=== PATIENT | female | born 1955 | race Caucasian/White ===

== ENCOUNTER → 2020-04-26 13:25 | Outpatient (CLI) | payer MEDICARE, OTHER, SELFPAY ==
[2020-04-27 17:24] LABS: COVID19 Sendout Not Detected (Not Detect)
== END ==
PROVIDERS: PCP Family Medicine; Visit Provider Physician Assistant
DX: Z11.59 Encounter for screening for other viral diseases (principal)
CPT/HCPCS: 87635

== ENCOUNTER 2020-04-29 09:49 | Day surgery (SDC) | payer MEDICARE, OTHER, SELFPAY ==
[2020-04-29 10:14] VITALS: BP 136/76; PULSE 80; RESP 14; TEMP 36.2; O2SAT 97
[2020-04-29 10:16] VITALS: BMI 26.7
[2020-04-29] MEDS: LACTATED RINGERS 1,000 ML 200 ML IV (10:24)
--- NOTE | 2020-04-29 10:24 | P.HP_ITS ---
History of Present Illness History of Present Illness Date Patient Seen: 04/29/20 Time Patient Seen: 10:24 Chief complaint: SDC Narrative: The patient is a woman who is last colonoscopy was 10 years ago. We have tried to contact her in the past to repeat her exam that she has always been out of town because of the work she does. She is here now for colonoscopy. No family history of colon cancer. Patient History Medical History (Updated 04/29/20 @ 10:25 by Jose Lucas MD) Asthma (Acute) Lichen sclerosus of female genitalia (Chronic) Family & Social History Social History: household members none Tobacco & Substance use: Smoking Status Former smoker alcohol intake former Substance Use Type does not use Meds Home Medications and Allergies Home Medications Medication Instructions Recorded Confirmed Type albuterol sulfate 90 mcg/actuation 2 puff INHALATION Q6H PRN #6.7 gram 02/21/19 04/25/19 Rx aerosol inhaler beclomethasone dipropionate 80 2 puff INHALATION BID #10.6 gram 02/21/19 04/25/19 Rx mcg/actuation HFA breath activated aerosol citalopram 20 mg tablet 20 mg PO QDAY #90 tab 02/21/19 04/25/19 Rx sulfamethoxazole 800 1 tab PO BID #14 tab 06/18/19 Rx mg-trimethoprim 160 mg tablet Allergies Allergy/AdvReac Type Severity Reaction Status Date / Time No Known Drug Allergies Allergy Verified 04/29/20 10:14 Review of Systems Review of Systems ROS: Yes All systems reviewed with the patient and are negative except as o therwise documented Exam Vital Signs (past 8 hours): - 04/29/20 10:14 Temperature 97.1 F L Pulse Rate 80 Respiratory Rate 14 Blood Pressure 136/76 Pulse Oximetry 97 Oxygen Delivery Method Room Air Narrative Exam Narrative: Pleasant cooperative patient no apparent distress. Lungs are clear to auscultation. No rales or rhonchi. Heart regular rate and rhythm no murmur gallop. Abdomen is soft nontender without mass. No obvious hernias. Patient is alert and oriented x3. Assessment & Plan Assessment & Plan narrative: The patient for a screening colonoscopy. I have discussed the procedure with them. Risks of bleeding, perforation which would necessitate major operation, failure to find remove all lesions, the potential tattoo were all discussed. All questions were answered. They wished to proceed.
--- NOTE | 2020-04-29 10:30 | PM.PREOP ---
Pre-operative Note COVID-19 COVID-19 status: Negative Result date/Date tested (Pos, Neg/Pending): 04/26/20 Interval Note History & Physical reviewed/Exam performed by Physician: Yes Changes to H&P: No ASA Class (for procedural sedation): I
[2020-04-29] MEDS: MIDAZOLAM 5 MG/5 ML VIAL IV ×4 (10:35→10:51)
[2020-04-29] MEDS: fentaNYL 250 MCG/5 ML INJ IV ×4 (10:35→10:51)
--- NOTE | 2020-04-29 11:07 | P.OP.ENDO_ITS ---
Operative Date/Time/Diagnoses Date of procedure: 04/29/20 Time of procedure: 11:07 Pre-op diagnosis: Screening for colon cancer. Last exam was 10 years ago. Post-op diagnosis: same (Diverticulosis sigmoid colon with a few scattered elsewhere) Procedure & Clinicians Study performed: Colonoscopy Same procedure as scheduled: Yes Indications: Screening for colon cancer. Last exam 08/2009. Small hyperplastic (non-neoplastic) polyp removed at that time. Surgeon: Jose Lucas Procedure Notes SCOAP/Timeout: Perform Procedure in detail: The patient was placed in the left lateral decubitus position and underwent IV sedation directed by the surgeon consisting of fentanyl and Versed. Digital exam was unremarkable. The scope was inserted and advanced through the rectum into the sigmoid, descending, transverse, and as cending colon. The patient was noted to have some tortuosity and narrowing of the sigmoid with extensive diverticulosis. I had difficulty getting into the cecum proper and had to reposition the patient apply pressure to do so.. The cecum was reached identified by the ileocecal valve and the appendiceal opening. The scope was gradually brought out. No Polyps were found. The scope ultimately was retroflexed in the rectum. The appearance was normal. The scope was removed and the patient tolerated the procedure well. The prep was very good. Scope withdrawal time: 7 minutes Sedation minutes: 30 Findings: diverticulosis (Principally in the sigmoid colon but scattered elsewhere) Specimen(s): none sent Complications: none Post-procedure Recommendations: Colonscopy in 10 years Follow up: as needed Disposition: PACU
[2020-04-29 11:12] VITALS: BP 136/81; PULSE 94; RESP 15; TEMP 36.4; O2SAT 95
--- NOTE | 2020-04-29 11:15 | SUR.PHASEI ---
assumed care from Nat.
[2020-04-29 11:17] VITALS: BP 137/69; PULSE 89; RESP 16; O2SAT 97
[2020-04-29 11:23] VITALS: BP 125/70; PULSE 82; RESP 16; TEMP 36.6; O2SAT 96
[2020-04-29 11:25] VITALS: BP 129/77; PULSE 79; RESP 16; TEMP 36.6; O2SAT 96
--- NOTE | 2020-04-29 14:23 | SUR.PHASEII ---
Late entry: Pt sleepy on arrival to [facility], wanting to sleep for a little while. Awakened, ready to go, friend called, left when ready and left in stable condition.
== END 2020-04-29 12:20 | disposition home or self-care (01) ==
PROVIDERS: PCP Family Medicine; Referring Provider Specialist; Visit Provider Specialist
PROC: 0DJD8ZZ Inspection of Lower Intestinal Tract, Via Natural or Artificial Opening Endoscopic (ICD-10-PCS; CPT 45378; principal; 2020-04-29 10:45)
DX: Z12.11 Encounter for screening for malignant neoplasm of colon (principal); K57.30 Diverticulosis of large intestine without perforation or abscess without bleeding
CPT/HCPCS: G0105; 99152; 99153; J2250; J3010

== ENCOUNTER → 2022-04-01 13:54 | Outpatient (CLI) | payer MEDICARE, OTHER, SELFPAY ==
[2022-04-01 14:55] LABS: Add Manual Diff / Slide Review NO; Basophils Absolute Auto 0 /uL (0-100); Basophils Percent Auto 0.9 % (0-2); Eosinophils Absolute Auto 300 /uL (0-450); Eosinophils Percent Auto 4.9 % (2-4); Hematocrit 38.8 % (36-46); Hemoglobin 13.4 g/dL (12.0-16.0); Lymphocytes Absolute Auto 1700 /uL (1100-4500); Lymphocytes Percent Auto 31.6 % (25-40); Mean Corpuscular HGB Conc 34.5 % (30-36); Mean Corpuscular Volume 89.9 fL (80-100); Monocytes Absolute Auto 400 /uL (0-900); Monocytes Percent Auto 7.3 % (3-14); Neutrophils Absolute Auto 3000 /uL (1500-7000); Neutrophils Percent Auto 55.3 % (50-75); Platelet Count 248 X10^3/uL (150-400); Red Blood Cell Count 4.31 X10^6/uL (4.0-5.2); Red Cell Distribution Width 13.4 % (11.6-14.8); White Blood Cell Count 5.4 X10^3/uL (4.5-11.0)
[2022-04-01 15:40] LABS: HEMOLYSIS < 15 (0-50); Potassium 4.2 mmol/L (3.4-5.1)
[2022-04-01 15:41] LABS: BUN Creatinine Ratio 30.6 (6-22); Blood Urea Nitrogen 22 mg/dL (7-17); Calcium 9.2 mg/dL (8.4-10.2); Carbon Dioxide 29 mmol/L (22-32); Chloride 102 mmol/L (98-107); Estimated Glomerular Filt Rate > 60 mL/min (>60); Glucose 93 mg/dL (80-110); Sodium 138 mmol/L (137-145)
[2022-04-01 15:42] LABS: Hemoglobin A1C% w Est Avg Glu 5.6 % (4.0-6.0)
== END ==
PROVIDERS: PCP Internal Medicine; Referring Provider Orthopaedic Surgery; Visit Provider Orthopaedic Surgery
DX: Z01.818 Encounter for other preprocedural examination (principal); R73.9 Hyperglycemia, unspecified; Z01.812 Encounter for preprocedural laboratory examination
CPT/HCPCS: 36415; 80048; 83036; 85025; 93005; 93010

== ENCOUNTER → 2024-03-07 13:46 | Outpatient (CLI) | payer MEDICARE, OTHER, SELFPAY ==
[2024-03-07 14:31] LABS: Add Manual Diff / Slide Review NO; Basophils Absolute Auto 100 /uL (0-100); Basophils Percent Auto 2.2 % (0-2); Eosinophils Absolute Auto 500 /uL (0-450); Eosinophils Percent Auto 10.2 % (2-4); Hematocrit 37.3 % (36-46); Hemoglobin 12.8 g/dL (12.0-16.0); Lymphocytes Absolute Auto 1900 /uL (1100-4500); Lymphocytes Percent Auto 36.3 % (25-40); Mean Corpuscular HGB Conc 34.3 % (30-36); Mean Corpuscular Hemoglobin 29.7 PG (26-34); Mean Corpuscular Volume 86.7 fL (80-100); Monocytes Absolute Auto 500 /uL (0-900); Monocytes Percent Auto 8.8 % (3-14); Neutrophils Absolute Auto 2200 /uL (1500-7000); Neutrophils Percent Auto 42.5 % (50-75); Platelet Count 261 X10^3/uL (150-400); Red Blood Cell Count 4.31 X10^6/uL (4.0-5.2); White Blood Cell Count 5.1 X10^3/uL (4.5-11.0)
[2024-03-07 14:46] LABS: HEMOLYSIS < 15 (0-50); Iron 90 ug/dL (37-170)
[2024-03-07 14:49] LABS: Alanine Aminotransferase 14 IU/L (<35); Albumin 4.4 g/dL (3.5-5.0); Albumin Globulin Ratio 1.5 (1.0-2.8); Alkaline Phosphatase 66 U/L (38-126); Aspartate Aminotransferase 21 IU/L (14-36); BUN Creatinine Ratio 20.3 (6-22); Bilirubin Total 0.4 mg/dL (0.2-1.3); Blood Urea Nitrogen 13 mg/dL (7-17); Calcium 9.6 mg/dL (8.4-10.2); Carbon Dioxide 30 mmol/L (22-32); Chloride 106 mmol/L (98-107); Estimated Glomerular Filt Rate > 60 mL/min (>60); Globulin 2.9 g/dL (1.7-4.1); Glucose 79 mg/dL (80-110); HEMOLYSIS < 15 (0-50); Potassium 4.6 mmol/L (3.4-5.1); Sodium 142 mmol/L (137-145); Total Protein 7.3 g/dL (6.3-8.2)
[2024-03-07 14:58] LABS: Percent Iron Saturation 25 % (15-50); Total Iron Binding Capacity 357 ug/dL (265-497); Transferrin 295 mg/dL (206-381)
[2024-03-07 15:21] LABS: Ferritin 14 ng/mL (11-264)
[2024-03-07 15:36] LABS: Vitamin B12 516 pg/mL (239-931)
== END ==
PROVIDERS: PCP Family Medicine; Referring Provider Family Medicine; Visit Provider Family Medicine
DX: D64.9 Anemia, unspecified (principal); R53.83 Other fatigue; E78.2 Mixed hyperlipidemia
CPT/HCPCS: 36415; 80053; 82607; 82728; 83540; 83550; 85025

== ENCOUNTER → 2024-05-16 09:24 | Outpatient (CLI) | payer MEDICARE, OTHER, SELFPAY ==
[2024-05-16 10:46] LABS: Cholesterol 263 mg/dL (140-199); HDL Cholesterol 69 mg/dL (40-60); LDL Cholesterol Calculated 176 mg/dL (<100); Triglycerides 92 mg/dL (35-150)
== END ==
PROVIDERS: PCP Family Medicine; Referring Provider Family Medicine; Visit Provider Family Medicine
DX: E78.2 Mixed hyperlipidemia (principal); Z79.899 Other long term (current) drug therapy
CPT/HCPCS: 36415; 80061

== ENCOUNTER → 2024-06-21 15:04 | Outpatient (CLI) | payer MEDICARE, OTHER, SELFPAY ==
--- NOTE | 2024-06-21 15:06 | DI.RAD.S_ITS ---
PROCEDURE: XR HIP W PEL IF DONE LT 2V INDICATIONS: L hip pain TECHNIQUE: 2 views of the hip were acquired. COMPARISON: None. FINDINGS: Bones: There is a possible fracture fragment versus ossification adjacent to the left ischial tuberosity. Calcific tendinopathy is also probably present. Mild background hip and lumbosacral degenerative changes. Soft tissues: No suspicious calcifications. Pelvic calcifications are probably phleboliths. IMPRESSION: Possible fracture fragment versus ossification adjacent to the left ischial tuberosity Probable calcific tendinopathy. Background mild hip degenerative changes. If there is high concern for further derangement, consider MRI evaluation. Dictated by: Anthony Soto M.D. on 06/21/2024 at 16:48 Approved by: Anthony Soto M.D. on 06/21/2024 at 16:49
--- NOTE | 2024-06-21 15:06 | DI.RAD.S_ITS ---
PROCEDURE: XR KNEE LT 3V INDICATIONS: L hip pain TECHNIQUE: 3 views of the knee were acquired. COMPARISON: None. FINDINGS: Bones: Moderate degenerative changes especially with joint space loss in the medial compartment. Dystrophic ossification versus loose bodies seen in the suprapatellar space and behind the tibia on lateral view. Soft tissues: [id number] joint effusion. IMPRESSION: Moderate degenerative changes particularly with joint space loss in the medial compartment. Possible intra-articular bodies and ossifications. [id number] effusion If there is high concern for further derangement, consider MRI evaluation. Dictated by: Anthony Soto M.D. on 06/21/2024 at 16:49 Approved by: Anthony Soto M.D. on 06/21/2024 at 16:50
== END ==
LOC: RAD 15:06
PROVIDERS: PCP Family Medicine; Referring Provider Family Medicine; Visit Provider Family Medicine
DX: M25.562 Pain in left knee (principal); M25.552 Pain in left hip; M25.462 Effusion, left knee
CPT/HCPCS: 73502; 73562